=== PATIENT | female | born 1965 | race Caucasian/White ===

== ENCOUNTER 2016-06-01 21:17 | Emergency (ER) | payer OTHER ==
[~2016-06-01] VITALS: Ht 165.1 cm; Wt 63.6 kg
[2016-06-01 21:21] VITALS: TEMP 96.7
[2016-06-01] MEDS ORDERED: PREMARIN 0.9MG0.9 MG PO (21:26)
[2016-06-01 21:36] LABS: BASO % 0.5 % (0.0-2.0); EOS # 0.1 (0.0-0.7); EOS % 1.4 % (0-4.0); GRAN # 3.8 (1.4-6.5); GRAN % 48.3 % (42.2-75.2); HEMATOCRIT 39.3 % (37.0-47.0); HEMOGLOBIN 13.6 g/dl (12.5-16.0); LYMPH # 3.1 (1.2-3.4); LYMPH % 39.4 % (20.0-51.0); MEAN CELL VOLUME 91 fl (80.0-100.0); MEAN CORPUSCULAR HEMOGLOBIN 32 pg (27.0-31.0); MEAN CORPUSCULAR HGB CONC 35 g/dl (33.0-37.0); MONO # 0.8 (0.1-0.6); MONO % 10.1 % (1.7-9.3); PLATELET COUNT 256 K/mm3 (130-400); RED BLOOD COUNT 4.32 M/mm3 (4.10-5.30); WHITE BLOOD COUNT 7.9 K/mm3 (4.8-10.8)
[2016-06-01 21:42] LABS: PARTIAL THROMBOPLASTIN TIME 25.1 SECONDS (26.0-37.0)
[2016-06-01 21:44] LABS: ADJUSTED CALCIUM 9.1 mg/dL (8.4-10.2); ALANINE AMINOTRANSFERASE 33 U/L (9-52); ALBUMIN 4.5 gm/dL (3.5-5.0); ALKALINE PHOSPHATASE 98 U/L (50-136); ANION GAP 16 mmol/L (7-16); BILIRUBIN,TOTAL 0.6 mg/dL (0.0-1.0); BLOOD UREA NITROGEN 17 mg/dL (7-17); CALCIUM 9.5 mg/dL (8.4-10.2); CARBON DIOXIDE 24 mmol/L (22-30); CHLORIDE 101 mmol/L (98-107); CREATININE, serum 0.82 mg/dL (0.52-1.25); GLUCOSE 108 mg/dL (74-106); SODIUM 141 mmol/L (137-145); TOTAL PROTEIN 7.1 gm/dL (6.4-8.2)
[2016-06-01 21:48] LABS: POTASSIUM 2.9 mmol/L (3.4-5.0)
[2016-06-01 21:56] LABS: TROPONIN-I < 0.012 ng/mL (0.000-0.034)
[2016-06-02 00:23] VITALS: BP 116/72; PULSE 75
== END 2016-06-02 00:25 | disposition home or self-care (01) ==
LOC: COL.ER 21:17
PROVIDERS: Family Medicine
DX: R07.9 Chest pain, unspecified (principal); E87.6 Hypokalemia; R10.13 Epigastric pain; I44.0 Atrioventricular block, first degree

== ENCOUNTER → 2016-06-05 | Outpatient (CLI) | payer OTHER ==
[~2016-06-05] MED LIST: PREMARIN 0.9MG0.9 MG PO
== END ==
LOC: COL.RAD 10:19
DX: Z53.9 Procedure and treatment not carried out, unspecified reason (principal)

== ENCOUNTER → 2016-06-06 | Outpatient (CLI) | payer OTHER | LOC: COL.RAD 07:08 | DX: K80.80 Other cholelithiasis without obstruction (principal); R07.89 Other chest pain ==

== ENCOUNTER → 2016-06-26 | Outpatient (CLI) | payer OTHER | LOC: COL.RAD 06:16 | DX: R68.81 Early satiety (principal) | CPT/HCPCS: A9541 ==

== ENCOUNTER → 2018-03-18 | Outpatient (CLI) | payer BC | LOC: MC.RAD 08:36 | DX: Z12.31 Encounter for screening mammogram for malignant neoplasm of breast (principal) ==

== ENCOUNTER → 2018-09-08 | Outpatient (CLI) | payer BC | LOC: COL.RAD 09-01 13:00 | DX: K44.9 Diaphragmatic hernia without obstruction or gangrene (principal) ==

== ENCOUNTER → 2019-04-14 | Outpatient (CLI) | payer BC | LOC: COL.CARD 04-06 11:20 | DX: R00.2 Palpitations (principal) ==

== ENCOUNTER → 2020-02-16 | Outpatient (CLI) | payer BC | LOC: MC.RAD 08:45 | DX: Z12.31 Encounter for screening mammogram for malignant neoplasm of breast (principal) ==

== ENCOUNTER → 2021-09-19 | Outpatient (CLI) | payer BC | LOC: MC.RAD 08:24 | DX: Z12.31 Encounter for screening mammogram for malignant neoplasm of breast (principal) ==